=== PATIENT | male | born 1980 | race Caucasian/White ===

== ENCOUNTER 2023-05-06 07:21 | Inpatient (IN) | payer MEDICAID ==
[~2023-05-06 07:21] MED LIST: Bupivacaine 0.5% 50 ML MDV ONE; Dexamethasone 4 MG/ML SDV ONE; Glycopyrrolate 0.2 MG/ML 5 ML MDV ONE; Lidocaine 1% with EPINEPHrine 1:100,000 50 ML MDV ONE; Neostigmine Methylsulfate 1 MG/ML 5 ML Syringe ONE; Ondansetron 4 MG/2 ML SDV ONE; Propofol 200 MG/20 ML SDV ONE; Rocuronium 50 MG/5 ML Vial ONE; Succinylcholine 200 MG/10 ML MDV ONE; cefOXitin 2 GM Vial ONE
[2023-05-06] MEDS ORDERED: Scopolamine 1.5 MG Transdermal Patch TRDERM SCH (07:30)
[2023-05-06] MEDS ORDERED: Celecoxib 200 MG Cap PO ONE (07:30)
[2023-05-06] MEDS ORDERED: Dextrose 5%-Lactated Ringers 1,000 ML IV SCH (08:00)
[2023-05-06] MEDS ORDERED: Ketamine 21 MG in Sodium Chloride 0.9% 19.79 ML IV SCH (09:00)
[2023-05-06] MEDS ORDERED: Ketamine 500 MG/5 ML MDV IV SCH (09:00)
[2023-05-06] MEDS ORDERED: cefOXitin 2 GM in Sodium Chloride 0.9% 50 ML IV ONE (09:15)
[2023-05-06] MEDS ORDERED: fentaNYL 250 MCG/5 ML SDV ONE (11:53)
[2023-05-06] MEDS ORDERED: Rocuronium 50 MG/5 ML Vial ONE (12:13)
[2023-05-06] MEDS ORDERED: Glucagon,Human Recombinant 1 MG Vial IM PRN ×2 (14:12→15:00)
[2023-05-06] MEDS ORDERED: 50% Dextrose in Water 50 ML Syringe IVPUSH PRN ×2 (14:12→15:00)
[2023-05-06] MEDS ORDERED: Insulin Lispro 100 Unit/ML 3 ML KwikPen SUBCUT ONE (14:30)
[2023-05-06] MEDS ORDERED: Cyclobenzaprine 10 MG Tab PO PRN (14:47)
[2023-05-06] MEDS ORDERED: Acetaminophen 500 MG Tab PO PRN (15:00)
[2023-05-06] MEDS ORDERED: Metoclopramide 10 MG/2 ML SDV IVPUSH PRN (15:00)
[2023-05-06] MEDS ORDERED: Labetalol 20 MG/4 ML Syringe IVPUSH PRN (15:00)
[2023-05-06] MEDS ORDERED: HYDROmorphone 0.5 MG/0.5 ML Syringe IVPUSH PRN (15:00)
[2023-05-06] MEDS ORDERED: diphenhydrAMINE 50 MG/ML SDV IVPUSH PRN (15:00)
[2023-05-06] MEDS ORDERED: Ondansetron 4 MG/2 ML SDV IVPUSH PRN (15:00)
[2023-05-06] MEDS: Lactated Ringers 1,000 ML IV SCH ×2 (15:04→23:23)
[2023-05-06] MEDS: oxyCODONE 5 MG Tab PO PRN (15:21)
[2023-05-06] MEDS: HYDROmorphone 1 MG/ML Syringe IV PRN ×2 (16:56→22:20)
[2023-05-06] MEDS: SCOPOLAMINE PATCH CHECK TOP SCH (16:58)
[2023-05-06] MEDS: Insulin Lispro 100 Unit/ML 3 ML KwikPen SUBCUT SCH ×2 (17:04→22:10)
[2023-05-06] MEDS: MVI, Adult with Vitamin K 10 ML, Thiamine 200 MG, Zinc/Copper/Manganese/Selenium 1 ML i... IV SCH ×4 (17:28)
[2023-05-06] MEDS: Pantoprazole 40 MG Vial IVPUSH SCH (17:32)
[2023-05-06] MEDS: cefOXitin 2 GM in Sodium Chloride 0.9% 50 ML IV SCH ×2 (17:34→22:24)
[2023-05-06] MEDS: Acetaminophen 500 MG Tab PO SCH (17:46)
[2023-05-06] MEDS: Heparin Sodium 5,000 Units/ML Vial SUBCUT SCH (22:16)
[2023-05-06] MEDS: atorvaSTATin 10 MG Tab PO SCH (22:16)
[2023-05-07] MEDS ORDERED: Iopamidol 612 MG/ML 50 ML SDV PO ONE (04:00)
[2023-05-07] MEDS: Insulin Lispro 100 Unit/ML 3 ML KwikPen SUBCUT SCH ×4 (04:47→21:48)
[2023-05-07] MEDS: Acetaminophen 500 MG Tab PO SCH ×3 (04:48→19:08)
[2023-05-07] MEDS: HYDROmorphone 1 MG/ML Syringe IV PRN (04:51)
[2023-05-07] MEDS: Heparin Sodium 5,000 Units/ML Vial SUBCUT SCH ×3 (04:57→20:23)
[2023-05-07] MEDS: cefOXitin 2 GM in Sodium Chloride 0.9% 50 ML IV SCH ×3 (06:34→16:44)
[2023-05-07] MEDS: Lactated Ringers 1,000 ML IV SCH ×2 (06:35→12:36)
[2023-05-07] MEDS: Losartan 25 MG Tab PO SCH (08:53)
[2023-05-07] MEDS ORDERED: Hyoscyamine 0.125 MG Tab.SL SL PRN (08:54)
[2023-05-07] MEDS: Aspirin 325 MG Tab.EC PO SCH (08:54)
[2023-05-07] MEDS: Celecoxib 200 MG Cap PO SCH ×2 (08:55→20:40)
[2023-05-07] MEDS: SCOPOLAMINE PATCH CHECK TOP SCH (09:01)
[2023-05-07] MEDS: oxyCODONE 5 MG Tab PO PRN ×2 (09:36→22:42)
[2023-05-07] MEDS: hydrOXYzine HCL 100 MG/2 ML SDV IM PRN ×2 (16:30→20:43)
[2023-05-07] MEDS: Pantoprazole 40 MG Vial IVPUSH SCH (16:39)
[2023-05-07] MEDS: MVI, Adult with Vitamin K 10 ML, Thiamine 200 MG, Zinc/Copper/Manganese/Selenium 1 ML i... IV SCH ×4 (16:42)
[2023-05-07] MEDS: atorvaSTATin 10 MG Tab PO SCH (20:40)
[2023-05-08] MEDS: traMADol 50 MG Tab PO PRN ×4 (00:28→19:38)
[2023-05-08] MEDS: Acetaminophen 500 MG Tab PO SCH ×4 (02:52→17:26)
[2023-05-08] MEDS: Lactated Ringers 1,000 ML IV SCH ×2 (03:15→13:48)
[2023-05-08] MEDS: Heparin Sodium 5,000 Units/ML Vial SUBCUT SCH ×3 (04:49→19:39)
[2023-05-08] MEDS: Insulin Lispro 100 Unit/ML 3 ML KwikPen SUBCUT SCH ×4 (08:18→21:24)
[2023-05-08] MEDS: SCOPOLAMINE PATCH CHECK TOP SCH (08:19)
[2023-05-08] MEDS ORDERED: Cyanocobalamin (Vitamin B12) 1,000 MCG/ML SDV IM ONE (09:00)
[2023-05-08] MEDS: Celecoxib 200 MG Cap PO SCH ×2 (09:47→21:26)
[2023-05-08] MEDS: Aspirin 325 MG Tab.EC PO SCH (09:47)
[2023-05-08] MEDS: Losartan 25 MG Tab PO SCH (09:47)
[2023-05-08] MEDS: Pantoprazole 40 MG Vial IVPUSH SCH (16:25)
[2023-05-08] MEDS ORDERED: Benzocaine/Cetylpyridinium/Menthol Lozenge MUCMEM PRN (18:04)
[2023-05-08] MEDS ORDERED: Simethicone 125 MG Tab.Chew PO PRN (18:12)
[2023-05-08] MEDS: atorvaSTATin 10 MG Tab PO SCH (21:26)
[2023-05-09] MEDS: traMADol 50 MG Tab PO PRN ×3 (01:34→08:58)
[2023-05-09] MEDS: Acetaminophen 500 MG Tab PO SCH (01:35)
[2023-05-09] MEDS: Heparin Sodium 5,000 Units/ML Vial SUBCUT SCH (04:28)
[2023-05-09] MEDS: Celecoxib 200 MG Cap PO SCH (08:26)
[2023-05-09] MEDS: Aspirin 325 MG Tab.EC PO SCH (08:27)
[2023-05-09] MEDS: Losartan 25 MG Tab PO SCH (08:27)
[2023-05-09] MEDS: Insulin Lispro 100 Unit/ML 3 ML KwikPen SUBCUT SCH (09:01)
== END 2023-05-09 09:00 | disposition home or self-care (01) | DRG 621 ==
LOC: JP.SDS 07:21 → JP.ICU 13:45
PROVIDERS: ADMIT Surgery; ATTEND Surgery
PROC: 0D194ZB Bypass Duodenum to Ileum, Percutaneous Endoscopic Approach (ICD-10-PCS; principal; 2023-05-06)
PROC: 0FB24ZX Excision of Left Lobe Liver, Percutaneous Endoscopic Approach, Diagnostic (ICD-10-PCS; 2023-05-06)
PROC: 0BQT4ZZ Repair Diaphragm, Percutaneous Endoscopic Approach (ICD-10-PCS; 2023-05-06)
DX: E66.01 Morbid (severe) obesity due to excess calories (principal); R16.0 Hepatomegaly, not elsewhere classified; K44.9 Diaphragmatic hernia without obstruction or gangrene; E11.9 Type 2 diabetes mellitus without complications; I10 Essential (primary) hypertension; F41.9 Anxiety disorder, unspecified; E78.5 Hyperlipidemia, unspecified; F32.A Depression, unspecified; Z88.8 Allergy status to other drugs, medicaments and biological substances; Z90.49 Acquired absence of other specified parts of digestive tract; Z86.16 Personal history of COVID-19; Z68.41 Body mass index [BMI] 40.0-44.9, adult
CPT/HCPCS: 36415; 74240; 74240-26; 82947; 86850; 86900; 86901; 88307; 88312; 88313; A9270-GY; C9113; J0131; J0171; J0330; J0694; J1100; J1170; J1644; J1815; J2405; J2704; J2710; J2795; J3010; J3410; J3411; J3420; J3490; J7120; J7121; Q9967

== ENCOUNTER 2023-06-13 09:30 | Day surgery (SDC) | payer MEDICAID ==
[2023-06-13] MEDS ORDERED: Glycopyrrolate 0.2 MG/ML 2 ML SDV IVPUSH ONE (10:30)
[2023-06-13] MEDS ORDERED: Cyanocobalamin (Vitamin B12) 1,000 MCG/ML SDV IM ONE (11:00)
[2023-06-13] MEDS ORDERED: Lactated Ringers 1,000 ML IV SCH (11:00)
[2023-06-13] MEDS ORDERED: Propofol 200 MG/20 ML SDV ONE (11:09)
[2023-06-13] MEDS ORDERED: Midazolam 1 MG/ML 2 ML SDV ONE (11:09)
[2023-06-13] MEDS ORDERED: fentaNYL 50 MCG/ML SDV ONE (11:09)
[2023-06-13] MEDS ORDERED: MVI, Adult with Vitamin K 10 ML, Thiamine 200 MG, Zinc/Copper/Manganese/Selenium 1 ML i... IV ONE ×4 (12:00)
== END 2023-06-13 14:45 | disposition home or self-care (01) ==
LOC: JP.SDS 09:30
PROVIDERS: ATTEND Surgery
DX: R13.10 Dysphagia, unspecified (principal); I10 Essential (primary) hypertension; F41.9 Anxiety disorder, unspecified; E66.9 Obesity, unspecified; Z98.84 Bariatric surgery status; Z98.890 Other specified postprocedural states
CPT/HCPCS: 43235; 93005; 93010; J2250; J2704; J3010; J3411; J3420; J3490; J7120